=== PATIENT | male | born 1965 | race Caucasian/White ===

== ENCOUNTER 2016-03-31 11:10 | Inpatient (IN) | payer OTHER ==
[~2016-03-31] VITALS: Ht 170.2 cm; Wt 72.1 kg
[~2016-03-31 11:10] MED LIST: ASPIR-LOW81 MG PO; ATARAX25 MG PO; DELTASONE20 MG PO; FLEXERIL10 MG PO; FLEXERIL5 MG PO; GABAPENTIN TAB600 MG PO; GABAPENTIN300 MG PO; HYDROCODONE BIT1 T11 PO; IBU800 MG PO; KEFLEX500 MG PO; LOMOTIL 0.025 M1 TA1 PO; MEDROL DOSEPAK4 MG PO; MINOCYCLINE100 MG PO; MOTRIN800 MG PO; NAPROSYN500 MG PO; NASONEX0.05 MG/AC NAS; NKHM; NORCO 325 MG-51 TAB PO; NYQUIL; OMEPRAZOLE D/R20 MG PO; PERCOCET 325 MG1 TA2 PO; PERCOCET 325 MG1 TAB PO; PRAMIPEXOLE DI0.5 MG PO; PREDNISONE20 MG PO; PROAIR HFA0.09 MG/AC INH; TESSALON PERLE200 MG PO; ZANTAC; ZANTAC 7575 MG PO; ZITHROMAX Z PA250 MG PO; ZYRTEC10 MG PO; [UNRECOGNIZED DRUG - OTHER] PO; [UNRECOGNIZED DRUG - OTHER] PO
[2016-03-31 11:27] VITALS: BP 140/91
[2016-03-31] MEDS ORDERED: GABAPENTIN TAB600 MG PO (11:34)
[2016-03-31] MEDS ORDERED: ASPIRIN CHEWABL81 MG PO (11:34)
[2016-03-31 11:55] LABS: BASO % 0.4 % (0.0-1.0); EOS # 0.2 10*3/uL (0.0-0.4); EOS % 2.4 % (1.0-4.0); HEMOGLOBIN 17.1 g/dl (14.0-18.0); LYMPH # 0.7 10*3/uL (1.3-4.4); LYMPH % 8.3 % (27.0-41.0); MEAN CELL VOLUME 98.6 fl (80.0-94.0); MEAN CORPUSCULAR HGB 33.1 pg (27.0-31.0); MEAN CORPUSCULAR HGB CONC 33.5 g/dl (33.0-37.0); MEAN PLATELET VOLUME 8.6 fl (9.6-12.3); MONO # 0.5 10*3/uL (0.1-1.0); MONO % 5.1 % (3.0-9.0); NEUT # 7.4 10*3/uL (2.3-7.9); NEUT % 83.5 % (47.0-73.0); PLATELET COUNT AUTOMATED 171 10*3/uL (130-400); RED BLOOD COUNT 5.17 10*6/uL (4.50-5.90); RED CELL DISTRI WIDTH 13.2 % (0-14.5); WHITE BLOOD COUNT 8.9 10*3/uL (4.8-10.8)
[2016-03-31 12:03] LABS: PROTHROMBIN TIME 10.2 SECONDS (9.0-12.4)
[2016-03-31 12:13] LABS: ALBUMIN 3.8 gm/dl (3.1-4.5); ALKALINE PHOSPHATASE 80 U/L (45-117); BILIRUBIN, TOTAL 0.8 mg/dl (0.2-1.0); BUN 13 mg/dl (7-24); CARBON DIOXIDE 27 mmol/L (21-32); CHLORIDE 99 mmol/L (98-107); EST GLOM FILT AFRICAN AMERICAN > 60 ml/min; GLUCOSE 109 mg/dL (65-99); SGOT/AST 147 IU/L (3-35); SGPT/ALT 178 U/L (12-78); SODIUM 137 mmol/L (136-145); TOTAL PROTEIN 7.8 gm/dL (6.4-8.2)
[2016-03-31 13:14] VITALS: BP 135/92
[2016-03-31 13:43] VITALS: BP 141/89
[2016-03-31] MEDS ORDERED: OMEPRAZOLE40 MG PO (14:15)
== END 2016-03-31 14:50 | disposition left against medical advice (07) | DRG 313 ==
LOC: ED 11:10 → EDHOLD 12:43 → 4E 13:19
PROVIDERS: Emergency Medicine
DX: R07.9 Chest pain, unspecified (principal); F10.10 Alcohol abuse, uncomplicated; K21.9 Gastro-esophageal reflux disease without esophagitis; F17.200 Nicotine dependence, unspecified, uncomplicated; Z82.62 Family history of osteoporosis; S39.012D Strain of muscle, fascia and tendon of lower back, subsequent encounter; Z88.0 Allergy status to penicillin; Z79.82 Long term (current) use of aspirin; Z79.899 Other long term (current) drug therapy; Z82.49 Family history of ischemic heart disease and other diseases of the circulatory system; Z83.3 Family history of diabetes mellitus; S16.1XXD Strain of muscle, fascia and tendon at neck level, subsequent encounter

== ENCOUNTER → 2016-04-17 | Outpatient (CLI) | payer OTHER ==
[~2016-04-17] MED LIST changes: +ASPIRIN CHEWABL81 MG PO; +OMEPRAZOLE40 MG PO
[2016-04-17 09:04] LABS: BASO # 0.1 10*3/uL (0.0-0.1); BASO % 1.1 % (0.0-1.0); EOS # 0.4 10*3/uL (0.0-0.4); EOS % 3.8 % (1.0-4.0); HEMATOCRIT 48.8 % (42.0-52.0); LYMPH # 3.1 10*3/uL (1.3-4.4); LYMPH % 30.2 % (27.0-41.0); MEAN CELL VOLUME 96.8 fl (80.0-94.0); MEAN CORPUSCULAR HGB 33.7 pg (27.0-31.0); MEAN CORPUSCULAR HGB CONC 34.8 g/dl (33.0-37.0); MEAN PLATELET VOLUME 8.4 fl (9.6-12.3); MONO % 9.8 % (3.0-9.0); NEUT # 5.5 10*3/uL (2.3-7.9); NEUT % 54.9 % (47.0-73.0); PLATELET COUNT AUTOMATED 284 10*3/uL (130-400); RED BLOOD COUNT 5.04 10*6/uL (4.50-5.90); RED CELL DISTRI WIDTH 12.7 % (0-14.5); WHITE BLOOD COUNT 10.1 10*3/uL (4.8-10.8)
[2016-04-17 09:31] LABS: ALBUMIN 3.9 gm/dl (3.1-4.5); ALKALINE PHOSPHATASE 66 U/L (45-117); BILIRUBIN, TOTAL 0.7 mg/dl (0.2-1.0); BUN 14 mg/dl (7-24); CARBON DIOXIDE 29 mmol/L (21-32); CHLORIDE 102 mmol/L (98-107); CHOLESTEROL 163 mg/dL (<200); EST GLOM FILT AFRICAN AMERICAN > 60 ml/min; GLUCOSE 85 mg/dL (65-99); HDL CHOLESTEROL 69 mg/dl (40-60); LDL CHOLESTEROL 79 mg/dL (9-159); POTASSIUM 3.9 mmol/L (3.5-5.1); SGOT/AST 93 IU/L (3-35); SGPT/ALT 127 U/L (12-78); SODIUM 139 mmol/L (136-145); TOTAL PROTEIN 7.9 gm/dL (6.4-8.2); TRIGLYCERIDES 73 mg/dl (<150); VLDL CHOLESTEROL 15 mg/dL (6-40)
[2016-04-17 09:44] LABS: FOLIC ACID 9.31 ng/mL (>5.38); VITAMIN D, 25-HYDROXY 11.9 ng/mL (30-100)
[2016-04-22 15:24] LABS: HEPATITIS C VIRUS ANTIBODY >11.0 s/co (0.0-0.9)
== END | disposition home or self-care (01) ==
LOC: LAB 08:19 → CT 09:00
PROVIDERS: Internal Medicine
DX: Z12.5 Encounter for screening for malignant neoplasm of prostate (principal); Z00.00 Encounter for general adult medical examination without abnormal findings; Z13.1 Encounter for screening for diabetes mellitus; Z13.21 Encounter for screening for nutritional disorder; Z13.220 Encounter for screening for lipoid disorders; S13.4XXA Sprain of ligaments of cervical spine, initial encounter; E55.9 Vitamin D deficiency, unspecified; R53.83 Other fatigue; S09.90XA Unspecified injury of head, initial encounter; X58.XXXA Exposure to other specified factors, initial encounter; Y93.89 Activity, other specified; Y92.89 Other specified places as the place of occurrence of the external cause; Y99.8 Other external cause status; J43.9 Emphysema, unspecified

== ENCOUNTER → 2016-07-20 | Outpatient (CLI) | payer OTHER ==
[2016-07-20 10:02] LABS: ALBUMIN 3.9 gm/dl (3.1-4.5); BILIRUBIN, DIRECT 0.1 mg/dL (0.0-0.2); BILIRUBIN, TOTAL 0.4 mg/dl (0.2-1.0); TOTAL PROTEIN 7.9 gm/dL (6.4-8.2)
[2016-07-21 21:06] LABS: HEPATITIS C QNT 2340000 IU/mL (.)
== END | disposition home or self-care (01) ==
LOC: US 07-18 08:51
PROVIDERS: Internal Medicine Gastroenterology
DX: B19.20 Unspecified viral hepatitis C without hepatic coma (principal); K76.0 Fatty (change of) liver, not elsewhere classified; I86.8 Varicose veins of other specified sites; F10.10 Alcohol abuse, uncomplicated

== ENCOUNTER → 2016-11-25 | Outpatient (CLI) | payer OTHER | END | disposition home or self-care (01) | LOC: CT 11-11 10:00 | DX: R91.1 Solitary pulmonary nodule (principal); J43.9 Emphysema, unspecified ==

== ENCOUNTER 2017-07-13 08:05 | Inpatient (IN) | payer OTHER ==
[~2017-07-13] VITALS: Ht 170.1 cm; Wt 71.7 kg
[2017-07-13] VITALS (8 sets, daily range): BP systolic 127–146; BP diastolic 77–108
--- NOTE | ~2017-07-13 | PROC NOTE ---
[place], [place] PROCEDURE NOTE NAME: DEANNA BLEDSOE UNIT #: [id number] ROOM: 405 DOCTOR: ESTEVAN HARDEN MD BIRTHDATE: [birth year] DOS: 07/14/2017 PREOPERATIVE DIAGNOSIS: Rectal bleeding. POSTOPERATIVE DIAGNOSIS: Internal hemorrhoids. PROCEDURE: Colonoscopy. ENDOSCOPIST: Estevan Harden MD DOOR CLOSER MECHANIC: LATRICE. ANESTHESIA: MAC. INDICATIONS: This is a 51-year-old gentleman who was admitted with rectal bleeding. It was decided to proceed with a colonoscopy. The procedure and its complications explained to the patient in detail preoperatively. Complications that were discussed included but were not limited to bleeding, missed lesions, colon perforation, and prolonged pain. He agreed to proceed. DESCRIPTION OF PROCEDURE: After identifying the patient, the patient was brought to the endoscopy suite and placed in the left lateral position. After IV sedation was administered, a timeout procedure was called and digital rectal exam was performed. This was within normal limits with no blood on the examining finger. An adult colonoscope was now introduced into the anal canal and advanced sequentially into the rectum, sigmoid colon, descending colon, transverse colon and ascending colon up to the cecum. The prep was found to be optimal. Upon reaching the cecum, the scope was withdrawn. Total withdrawal time was approximately 7 minutes. The entirety of the colon was inspected thoroughly and there was no evidence of any blood or any lesions that could have caused this bleeding. Upon reaching the rectum, the scope was retroflexed and the patient was found to have internal hemorrhoids, which were not actively bleeding. The scope was then withdrawn and the patient was brought back to the recovery room in stable fashion. There were no complications. Dr. Estevan Harden, the attending endoscopist, was present throughout the operating case. Based on these findings, the patient is recommended to have his next colonoscopy in 10 years or sooner if he had any new symptoms. These findings were discussed with the patient's fiancee in the recovery room. [place], [place] PROCEDURE NOTE NAME: DEANNA BLEDSOE UNIT #: [id number] ROOM: 405 DOCTOR: ESTEVAN HARDEN MD BIRTHDATE: [birth year] Estevan Harden MD CM:ZBIGNIEW:PROCEDURE NOTE [id number] ESTEVAN HARDEN MD
[2017-07-13 08:46] LABS: BASO # 0.1 10*3/uL (0.0-0.1); BASO % 1.2 % (0.0-1.0); EOS # 0.3 10*3/uL (0.0-0.4); EOS % 4.3 % (1.0-4.0); HEMATOCRIT 48.9 % (42.0-52.0); HEMOGLOBIN 16.4 g/dl (14.0-18.0); LYMPH % 29.2 % (27.0-41.0); MEAN CELL VOLUME 97.4 fl (80.0-94.0); MEAN CORPUSCULAR HGB 32.7 pg (27.0-31.0); MEAN CORPUSCULAR HGB CONC 33.5 g/dl (33.0-37.0); MEAN PLATELET VOLUME 8.4 fl (9.6-12.3); MONO # 0.8 10*3/uL (0.1-1.0); MONO % 11.1 % (3.0-9.0); NEUT # 3.7 10*3/uL (2.3-7.9); NEUT % 54.1 % (47.0-73.0); PLATELET COUNT AUTOMATED 178 10*3/uL (130-400); RED BLOOD COUNT 5.02 10*6/uL (4.50-5.90); RED CELL DISTRI WIDTH 13.7 % (0-14.5); WHITE BLOOD COUNT 6.8 10*3/uL (4.8-10.8)
[2017-07-13 08:55] LABS: ACT PARTIAL THROMBO TIME 28.3 SECONDS (20.8-31.5)
[2017-07-13 09:01] LABS: ALKALINE PHOSPHATASE 86 U/L (45-117); BUN 16 mg/dl (7-24); CHLORIDE 97 mmol/L (98-107); CREATININE 1.21 mg/dL (0.70-1.30); LIPASE 454 U/L (73-393); SGOT/AST 106 IU/L (3-35); SGPT/ALT 117 U/L (12-78); SODIUM 136 mmol/L (136-145); TOTAL PROTEIN 7.9 gm/dL (6.4-8.2)
[2017-07-13 09:02] LABS: ETHYL ALCOHOL < 3.0 mg/dl (<3)
[2017-07-14 07:02] LABS: BASO # 0.1 10*3/uL (0.0-0.1); BASO % 1.2 % (0.0-1.0); EOS # 0.4 10*3/uL (0.0-0.4); EOS % 6.5 % (1.0-4.0); HEMATOCRIT 47.7 % (42.0-52.0); HEMOGLOBIN 16.1 g/dl (14.0-18.0); LYMPH % 34.3 % (27.0-41.0); MEAN CORPUSCULAR HGB 32.7 pg (27.0-31.0); MEAN CORPUSCULAR HGB CONC 33.8 g/dl (33.0-37.0); MEAN PLATELET VOLUME 8.8 fl (9.6-12.3); MONO # 0.6 10*3/uL (0.1-1.0); MONO % 10.9 % (3.0-9.0); NEUT # 2.7 10*3/uL (2.3-7.9); NEUT % 46.9 % (47.0-73.0); PLATELET COUNT AUTOMATED 178 10*3/uL (130-400); RED BLOOD COUNT 4.92 10*6/uL (4.50-5.90); RED CELL DISTRI WIDTH 13.5 % (0-14.5); WHITE BLOOD COUNT 5.7 10*3/uL (4.8-10.8)
[2017-07-14 07:22] LABS: ALBUMIN 3.7 gm/dl (3.1-4.5); BUN 10 mg/dl (7-24); CHLORIDE 101 mmol/L (98-107); POTASSIUM 3.9 mmol/L (3.5-5.1); SODIUM 136 mmol/L (136-145)
[2017-07-14 07:29] LABS: ALKALINE PHOSPHATASE 57 U/L (45-117); CREATININE 1.03 mg/dL (0.70-1.30); FREE T4 1.13 ng/dl (0.76-1.46); PHOSPHOROUS 2.8 mg/dL (2.5-4.9); SGOT/AST 86 IU/L (3-35); SGPT/ALT 99 U/L (12-78); TOTAL PROTEIN 7.5 gm/dL (6.4-8.2)
[2017-07-14 08:00] VITALS: BP 156/98
[2017-07-14 09:58] LABS: VITAMIN D, 25-HYDROXY 12.6 ng/mL (30-100)
[2017-07-14 12:00] VITALS: BP 158/86
[2017-07-14 12:02] VITALS: BP 147/95
[2017-07-14 12:33] VITALS: BP 119/72
[2017-07-14 12:48] VITALS: BP 130/85
[2017-07-14 13:03] VITALS: BP 135/92
[2017-07-14] MEDS ORDERED: OMEPRAZOLE40 MG PO (13:13)
[2017-07-14] MEDS ORDERED: ATARAX,VISTARIL50 MG PO (13:13)
[2017-07-14] MEDS ORDERED: LISINOPRIL5 MG PO (13:13)
== END 2017-07-14 14:01 | disposition home or self-care (01) | DRG 379 ==
LOC: ED 08:05 → 4E 09:59 → EDHOLD 09:59 → 4E 10:17
PROVIDERS: Emergency Medicine; Family Medicine; Registered Nurse
PROC: 0DJD8ZZ Inspection of Lower Intestinal Tract, Via Natural or Artificial Opening Endoscopic (ICD-10-PCS; principal; 2017-07-14)
DX: K92.2 Gastrointestinal hemorrhage, unspecified (principal); K76.0 Fatty (change of) liver, not elsewhere classified; B19.20 Unspecified viral hepatitis C without hepatic coma; K44.9 Diaphragmatic hernia without obstruction or gangrene; K21.9 Gastro-esophageal reflux disease without esophagitis; R74.0 Nonspecific elevation of levels of transaminase and lactic acid dehydrogenase [LDH]; F10.20 Alcohol dependence, uncomplicated; F17.210 Nicotine dependence, cigarettes, uncomplicated; K64.8 Other hemorrhoids; Z88.0 Allergy status to penicillin; Z83.3 Family history of diabetes mellitus; Z82.49 Family history of ischemic heart disease and other diseases of the circulatory system; Z79.899 Other long term (current) drug therapy

== ENCOUNTER → 2017-11-25 | Outpatient (CLI) | payer OTHER ==
[~2017-11-25] MED LIST changes: +ATARAX,VISTARIL50 MG PO; +LISINOPRIL5 MG PO
== END | disposition home or self-care (01) ==
LOC: CT 11-24 09:00
DX: R91.1 Solitary pulmonary nodule (principal); R06.02 Shortness of breath

== ENCOUNTER → 2018-02-11 | Outpatient (CLI) | payer OTHER | END | disposition home or self-care (01) | LOC: ORTHO 02-10 18:34 | DX: M18.9 Osteoarthritis of first carpometacarpal joint, unspecified (principal); M25.732 Osteophyte, left wrist ==

== ENCOUNTER → 2018-09-20 | Outpatient (CLI) | payer OTHER ==
[2018-09-20 14:05] LABS: CREATININE 1.15 mg/dL (0.70-1.30)
== END | disposition home or self-care (01) ==
LOC: CT 13:00 → LAB 13:01
PROVIDERS: Thoracic Surgery (Cardiothoracic Vascular Surgery)
DX: I71.2 Thoracic aortic aneurysm, without rupture (principal); I10 Essential (primary) hypertension; F10.10 Alcohol abuse, uncomplicated; Z72.0 Tobacco use

== ENCOUNTER → 2018-12-08 | Outpatient (CLI) | payer OTHER | END | disposition home or self-care (01) | LOC: CT 10:58 | DX: R91.1 Solitary pulmonary nodule (principal); N20.0 Calculus of kidney; R06.02 Shortness of breath ==

== ENCOUNTER → 2018-12-21 | Outpatient (CLI) | payer OTHER | END | disposition home or self-care (01) | LOC: MRI 13:31 | DX: M47.22 Other spondylosis with radiculopathy, cervical region (principal); M47.816 Spondylosis without myelopathy or radiculopathy, lumbar region; M48.02 Spinal stenosis, cervical region; M79.2 Neuralgia and neuritis, unspecified; M25.511 Pain in right shoulder; B19.20 Unspecified viral hepatitis C without hepatic coma ==

== ENCOUNTER → 2019-01-26 | Outpatient (CLI) | payer OTHER | END | disposition home or self-care (01) | LOC: CARD 00:31 | DX: I35.1 Nonrheumatic aortic (valve) insufficiency (principal); I10 Essential (primary) hypertension; Z72.0 Tobacco use ==

== ENCOUNTER → 2019-01-27 | Outpatient (CLI) | payer OTHER ==
[2019-01-27 09:17] LABS: BASO # 0.1 10*3/uL (0.0-0.1); BASO % 0.7 % (0.0-1.0); EOS # 0.2 10*3/uL (0.0-0.4); EOS % 2.3 % (1.0-4.0); HEMATOCRIT 48.9 % (42.0-52.0); HEMOGLOBIN 16.4 g/dl (14.0-18.0); LYMPH # 2.5 10*3/uL (1.3-4.4); LYMPH % 28.2 % (27.0-41.0); MEAN CELL VOLUME 100.4 fl (80.0-94.0); MEAN CORPUSCULAR HGB 33.7 pg (27.0-31.0); MEAN CORPUSCULAR HGB CONC 33.5 g/dl (33.0-37.0); MEAN PLATELET VOLUME 8.8 fl (9.6-12.3); MONO # 0.9 10*3/uL (0.1-1.0); MONO % 10.3 % (3.0-9.0); NEUT # 5.1 10*3/uL (2.3-7.9); NEUT % 58.3 % (47.0-73.0); PLATELET COUNT AUTOMATED 171 10*3/uL (130-400); RED BLOOD COUNT 4.87 10*6/uL (4.50-5.90); RED CELL DISTRI WIDTH 13.4 % (0-14.5); WHITE BLOOD COUNT 8.7 10*3/uL (4.8-10.8)
[2019-01-27 09:38] LABS: ALBUMIN 3.6 gm/dl (3.1-4.5); ALKALINE PHOSPHATASE 96 U/L (45-117); BUN 10 mg/dl (7-24); CHLORIDE 99 mmol/L (98-107); CHOLESTEROL 174 mg/dL (<200); CREATININE 1.07 mg/dL (0.70-1.30); HDL CHOLESTEROL 75 mg/dl (40-60); LDL CHOLESTEROL 87 mg/dL (9-159); POTASSIUM 4.1 mmol/L (3.5-5.1); SGOT/AST 148 IU/L (3-35); SGPT/ALT 168 U/L (12-78); SODIUM 135 mmol/L (136-145); TOTAL PROTEIN 7.6 gm/dL (6.4-8.2); TRIGLYCERIDES 58 mg/dl (<150); VLDL CHOLESTEROL 12 mg/dL (6-40)
[2019-01-28 08:10] LABS: HEPATITIS B SURFACE AG Negative (Negative)
[2019-01-28 09:04] LABS: RHEUMATOID ARTHRITIS FACTOR 42.8 IU/mL (0.0-13.9)
[2019-01-30 14:46] LABS: HEPATITIS C VIRUS ANTIBODY >11.0 s/co (0.0-0.9)
== END | disposition home or self-care (01) ==
LOC: LAB 08:35
PROVIDERS: Registered Nurse Flight
DX: Z13.29 Encounter for screening for other suspected endocrine disorder (principal); M19.90 Unspecified osteoarthritis, unspecified site; B19.20 Unspecified viral hepatitis C without hepatic coma; N17.9 Acute kidney failure, unspecified

== ENCOUNTER → 2019-02-15 | Outpatient (CLI) | payer OTHER | END | disposition home or self-care (01) | LOC: MRI 08:36 | DX: M51.36 Other intervertebral disc degeneration, lumbar region (principal); M51.26 Other intervertebral disc displacement, lumbar region; M47.816 Spondylosis without myelopathy or radiculopathy, lumbar region ==

== ENCOUNTER → 2019-04-05 | Outpatient (CLI) | payer OTHER | END | disposition home or self-care (01) | LOC: US 03-01 07:30 | DX: K76.0 Fatty (change of) liver, not elsewhere classified (principal); B19.20 Unspecified viral hepatitis C without hepatic coma ==

== ENCOUNTER 2019-05-18 17:07 | Emergency (ER) | payer OTHER ==
[~2019-05-18] VITALS: Ht 170.1 cm; Wt 70.3 kg
[2019-05-18 18:57] LABS: HEMATOCRIT 46.1 % (42.0-52.0); HEMOGLOBIN 15.7 g/dl (14.0-18.0); MEAN CELL VOLUME 100.2 fl (80.0-94.0); MEAN CORPUSCULAR HGB 34.1 pg (27.0-31.0); MEAN CORPUSCULAR HGB CONC 34.1 g/dl (33.0-37.0); MEAN PLATELET VOLUME 8.6 fl (9.6-12.3); PLATELET COUNT AUTOMATED 223 10*3/uL (130-400); RED CELL DISTRI WIDTH 13.1 % (0-14.5); WHITE BLOOD COUNT 11.2 10*3/uL (4.8-10.8)
[2019-05-18 19:16] LABS: ALBUMIN 3.7 gm/dl (3.1-4.5); ALKALINE PHOSPHATASE 85 U/L (45-117); BUN 17 mg/dl (7-24); CHLORIDE 98 mmol/L (98-107); CREATININE 1.14 mg/dL (0.70-1.30); LIPASE 166 U/L (73-393); POTASSIUM 3.7 mmol/L (3.5-5.1); SGOT/AST 79 IU/L (3-35); SGPT/ALT 78 U/L (12-78); SODIUM 134 mmol/L (136-145); TOTAL PROTEIN 8.3 gm/dL (6.4-8.2)
[2019-05-18 19:17] LABS: ACT PARTIAL THROMBO TIME 29.4 SECONDS (20.0-32.1); TROPONIN I < 0.015 ng/ml (<0.045)
[2019-05-18 19:18] LABS: BASOPHILS 2 % (0-1); PLATELET SUFFICIENCY NORMAL (NORMAL); TOTAL CELLS COUNTED 100 #CELLS
[2019-05-18 19:41] LABS: URINE AMPHETAMINES < 1000 (1000ng/ml); URINE BARBITURATES < 200 (200ng/ml); URINE BENZODIAZEPINES < 200 (200ng/ml); URINE CANNABINOIDS (THC) > 50 (50ng/ml); URINE COCAINE < 300 (300ng/ml); URINE METHADONE < 300 (300ng/ml); URINE OPIATES < 300 (300ng/ml)
[2019-05-18 19:43] LABS: URINE PHENCYCLIDINE < 25 (25ng/ml)
[2019-05-18 19:55] LABS: BILIRUBIN NEGATIVE (NEGATIVE); BLOOD NEGATIVE (NEGATIVE); CLARITY CLEAR (CLEAR); COLOR YELLOW (YELLOW); GLUCOSE NEGATIVE (NEGATIVE); KETONE TRACE (NEGATIVE); LEUKO ESTERASE NEGATIVE (NEGATIVE); NITRITE NEGATIVE (NEGATIVE); UROBILINOGEN 0.2 E.U./dl (0.2-1.0)
[2019-05-18 19:57] LABS: WBC 0-2 wbc/hpf (0-5)
== END 2019-05-19 04:54 | disposition home health service (06) ==
LOC: ED 17:07
PROVIDERS: Emergency Medicine; Nurse Practitioner Family
DX: F22 Delusional disorders (principal); R45.850 Homicidal ideations; K21.9 Gastro-esophageal reflux disease without esophagitis; F17.210 Nicotine dependence, cigarettes, uncomplicated; Z88.0 Allergy status to penicillin; Z79.899 Other long term (current) drug therapy

== ENCOUNTER → 2020-02-13 | Outpatient (CLI) | payer OTHER ==
[2020-02-13 08:49] LABS: BASO # 0.1 10*3/uL (0.0-0.1); BASO % 0.6 % (0.0-1.0); EOS # 0.3 10*3/uL (0.0-0.4); EOS % 2.7 % (1.0-4.0); HEMATOCRIT 47.8 % (42.0-52.0); LYMPH # 2.3 10*3/uL (1.3-4.4); LYMPH % 22.6 % (27.0-41.0); MEAN CELL VOLUME 93.5 fl (80.0-94.0); MEAN CORPUSCULAR HGB 32.7 pg (27.0-31.0); MEAN CORPUSCULAR HGB CONC 34.9 g/dl (33.0-37.0); MEAN PLATELET VOLUME 8.4 fl (9.6-12.3); MONO % 9.7 % (3.0-9.0); NEUT # 6.5 10*3/uL (2.3-7.9); NEUT % 64.1 % (47.0-73.0); PLATELET COUNT AUTOMATED 219 10*3/uL (130-400); RED BLOOD COUNT 5.11 10*6/uL (4.50-5.90); RED CELL DISTRI WIDTH 13.8 % (0-14.5); WHITE BLOOD COUNT 10.2 10*3/uL (4.8-10.8)
[2020-02-13 09:25] LABS: URINE AMPHETAMINES < 1000 (1000ng/ml); URINE BARBITURATES < 200 (200ng/ml); URINE BENZODIAZEPINES < 200 (200ng/ml); URINE CANNABINOIDS (THC) < 50 (50ng/ml); URINE COCAINE < 300 (300ng/ml); URINE METHADONE < 300 (300ng/ml); URINE OPIATES < 300 (300ng/ml)
[2020-02-13 09:28] LABS: URINE PHENCYCLIDINE < 25 (25ng/ml)
[2020-02-13 09:31] LABS: ALBUMIN 3.6 gm/dl (3.1-4.5); BUN 10 mg/dl (7-24); CHLORIDE 105 mmol/L (98-107); POTASSIUM 3.5 mmol/L (3.5-5.1); SGOT/AST 90 IU/L (3-35); SGPT/ALT 84 U/L (12-78); SODIUM 137 mmol/L (136-145); TOTAL PROTEIN 8.1 gm/dL (6.4-8.2)
[2020-02-13 09:32] LABS: ALKALINE PHOSPHATASE 96 U/L (45-117); CREATININE 1.18 mg/dL (0.70-1.30)
[2020-02-14 08:08] LABS: HEP B CORE AB, IGM Negative (Negative); HEPATITIS A AB, TOTAL Negative (Negative); HEPATITIS B SURFACE AG Negative (Negative)
[2020-02-14 20:11] LABS: HCV LOG10 6.555 (.); HEPATITIS C QNT 3590000 IU/mL (.)
[2020-02-19 13:39] LABS: HEPATITIS C VIRUS ANTIBODY >11.0 s/co (0.0-0.9)
== END | disposition home or self-care (01) ==
LOC: LAB 08:19
PROVIDERS: ATTEND Internal Medicine Gastroenterology
DX: B18.2 Chronic viral hepatitis C (principal)

== ENCOUNTER → 2020-09-06 | Outpatient (CLI) | payer OTHER ==
[2020-09-06 09:41] LABS: CREATININE 1.06 mg/dL (0.70-1.30)
== END | disposition home or self-care (01) ==
LOC: LAB 09:13 → CT 10:00
PROVIDERS: ATTEND Internal Medicine Cardiovascular Disease
DX: I71.2 Thoracic aortic aneurysm, without rupture (principal); I10 Essential (primary) hypertension; K76.0 Fatty (change of) liver, not elsewhere classified

== ENCOUNTER → 2021-10-17 | Outpatient (CLI) | payer OTHER ==
[2021-10-17 09:22] LABS: BASO # 0.1 10*3/uL (0.0-0.1); BASO % 1.2 % (0.0-1.0); EOS # 0.3 10*3/uL (0.0-0.4); EOS % 3.1 % (1.0-4.0); HEMATOCRIT 38.4 % (42.0-52.0); LYMPH # 3.1 10*3/uL (1.3-4.4); LYMPH % 32.8 % (27.0-41.0); MEAN CELL VOLUME 88.9 fl (80.0-94.0); MEAN CORPUSCULAR HGB 28.9 pg (27.0-31.0); MEAN CORPUSCULAR HGB CONC 32.6 g/dl (33.0-37.0); MONO # 1.2 10*3/uL (0.1-1.0); MONO % 12.6 % (3.0-9.0); NEUT # 4.7 10*3/uL (2.3-7.9); NEUT % 50.1 % (47.0-73.0); PLATELET COUNT AUTOMATED 184 10*3/uL (130-400); RED BLOOD COUNT 4.32 10*6/uL (4.50-5.90); RED CELL DISTRI WIDTH 18.4 % (0-14.5); WHITE BLOOD COUNT 9.3 10*3/uL (4.8-10.8)
[2021-10-17 09:33] LABS: INTERNATIONAL NORM RATIO 1.1 (2.0-3.5)
[2021-10-17 10:03] LABS: BUN 8 mg/dl (7-24); CHLORIDE 101 mmol/L (98-107); CHOLESTEROL 125 mg/dL (<200); CREATININE 1.05 mg/dL (0.70-1.30); GAMMA GLUTAMYL TRANSPEPTIDASE 204 U/L (15-85); POTASSIUM 4.1 mmol/L (3.5-5.1); SGOT/AST 98 IU/L (3-35); SGPT/ALT 41 U/L (12-78); SODIUM 135 mmol/L (136-145); TOTAL PROTEIN 7.1 gm/dL (6.4-8.2); TRIGLYCERIDES 84 mg/dl (<150)
[2021-10-17 10:10] LABS: ALKALINE PHOSPHATASE 139 U/L (45-117); LDL CHOLESTEROL 71 mg/dL (9-159); T3 UPTAKE 31 % (31-39)
== END | disposition home or self-care (01) ==
LOC: LAB 08:41
PROVIDERS: ATTEND Family Medicine
DX: Z00.00 Encounter for general adult medical examination without abnormal findings (principal); Z13.1 Encounter for screening for diabetes mellitus; Z13.6 Encounter for screening for cardiovascular disorders; Z51.81 Encounter for therapeutic drug level monitoring; B18.2 Chronic viral hepatitis C

== ENCOUNTER → 2021-12-03 | Outpatient (CLI) | payer OTHER | END | disposition home or self-care (01) | LOC: RAD 11:50 | PROVIDERS: ATTEND Family Medicine | DX: M51.36 Other intervertebral disc degeneration, lumbar region (principal); M85.88 Other specified disorders of bone density and structure, other site; M47.817 Spondylosis without myelopathy or radiculopathy, lumbosacral region ==

== ENCOUNTER → 2022-01-27 | Outpatient (CLI) | payer OTHER ==
[~2022-01-27] MED LIST changes: +LASIX20 MG PO; +PROZAC40 M1 PO; +RISPERDAL1 M1 PO; +VITAMIN D31250 MC1 PO; +VITAMIN E1000 UNI1 PO
== END | disposition home or self-care (01) ==
LOC: CARD 01:42
PROVIDERS: ATTEND Internal Medicine Cardiovascular Disease
DX: I20.9 Angina pectoris, unspecified (principal); R53.81 Other malaise

== ENCOUNTER 2022-03-12 11:03 | Emergency (ER) | payer OTHER ==
[~2022-03-12] VITALS: Wt 90.7 kg
[2022-03-12] MEDS ORDERED: PERCOCET 5-3251 EACH PO (12:51)
== END 2022-03-12 13:11 | disposition home or self-care (01) ==
LOC: ED 11:03
DX: S92.901A Unspecified fracture of right foot, initial encounter for closed fracture (principal); Z88.0 Allergy status to penicillin; Z88.8 Allergy status to other drugs, medicaments and biological substances; Z79.899 Other long term (current) drug therapy; Z90.89 Acquired absence of other organs; Z98.890 Other specified postprocedural states; F17.210 Nicotine dependence, cigarettes, uncomplicated; X50.1XXA Overexertion from prolonged static or awkward postures, initial encounter; Y93.89 Activity, other specified; Y92.89 Other specified places as the place of occurrence of the external cause; Y99.8 Other external cause status

== ENCOUNTER → 2022-03-16 | Outpatient (CLI) | payer OTHER ==
[~2022-03-16] MED LIST changes: +PERCOCET 5-3251 EACH PO
== END | disposition home or self-care (01) ==
LOC: US 07:08
PROVIDERS: ATTEND Family Medicine
DX: K76.0 Fatty (change of) liver, not elsewhere classified (principal); M85.88 Other specified disorders of bone density and structure, other site; R18.8 Other ascites